=== PATIENT | male | born 1940 | race Caucasian/White ===

== ENCOUNTER 2022-12-12 09:19 | Outpatient (OUT) | payer MEDICARE, SELFPAY ==
[2022-12-12 09:56] LABS: Estimated Average Glucose 140 mg/dL; Glycohemoglobin A1C 6.5 % (4.5-6.2)
[2022-12-12 10:41] LABS: Alanine Aminotransferase 39 U/L (16-63); Albumin Globulin Ratio 0.8; Albumin Level 3.6 g/dL (3.4-5.0); Alkaline Phosphatase 74 U/L (46-116); Anion Gap 9.5; Aspartate Amino Transferase 21 U/L (15-37); Bilirubin Total 0.5 mg/dL (0.2-1.0); Calcium 9.2 mg/dL (8.5-10.1); Carbon Dioxide 27.8 mmol/L (21.0-32.0); Chloride 103 mmol/L (98-107); Chol HDL Ratio 3.6; Cholesterol 133 mg/dL (<=200); Estimated GFR (African America >60 (>=60); Estimated GFR (Non-African Ame >60 (>=60); Globulin 4.4 g/dL; Glucose 124 mg/dL (74-106); HDL Cholesterol 37 mg/dL (40-60); Potassium 4.3 mmol/L (3.5-5.1); Sodium 136 mmol/L (136-145); Triglycerides 82 mg/dL (<=150); VLDL CHOLESTEROL 16.4 mg/dL
== END 2022-12-12 09:20 | disposition home or self-care (01) ==
LOC: LAB 09:19
PROVIDERS: PCP Family Medicine; Visit Provider Family Medicine
DX: E11.22 Type 2 diabetes mellitus with diabetic chronic kidney disease (principal); I12.9 Hypertensive chronic kidney disease with stage 1 through stage 4 chronic kidney disease, or unspecified chronic kidney disease; N18.2 Chronic kidney disease, stage 2 (mild); E78.5 Hyperlipidemia, unspecified
CPT/HCPCS: 36415; 80053; 80061; 83036

== ENCOUNTER 2023-02-21 14:26 | Outpatient (OUT) | payer MEDICARE, SELFPAY ==
--- NOTE | 2023-02-21 14:32 | XR_ITS ---
The [place] [address] Patient Name: MAGALI CAMPBELL MRN: [id number] date: 1940 Sex: M Assigned Patient Location: [facility] Current Patient Location: [facility] Accession/Order Number: [id number] Exam Date: 02/21/2023 14:35 Report Date: 02/21/2023 18:34 At the request of: TRISTA IBARRA Procedure: XR lumbar spine 2-3V EXAMINATION: XR lumbar spine 2-3V HISTORY: M47.816 r COMPARISON: No relevant comparison available. FINDINGS: BONES: 6 mm anterolisthesis of L4 on L5. Moderate degenerative spondylosis and facet osteoarthropathy DISC SPACES: Normal. No significant disc height narrowing, subluxation, or endplate abnormality. PARASPINOUS: Negative. No paraspinous abnormality is seen. OTHER: Extensive vascular calcifications XR/XR lumbar spine 2-3V IMPRESSION: 6 mm anterolisthesis of L4 and L5. Moderate degenerative change Electronically authenticated by: DELORIS CHILDRESS Date: 02/21/2023 18:34
== END 2023-02-21 14:27 | disposition home or self-care (01) ==
LOC: RAD 14:26
PROVIDERS: PCP Family Medicine; Visit Provider Family Medicine
DX: M47.816 Spondylosis without myelopathy or radiculopathy, lumbar region (principal)
CPT/HCPCS: 72100

== ENCOUNTER 2023-02-27 14:26 | Outpatient (OUT) | payer MEDICARE, SELFPAY ==
--- NOTE | 2023-02-27 14:29 | XR_ITS ---
The [address] [address] Patient Name: MAGALI CAMPBELL MRN: [id number] date: 1940 Sex: M Assigned Patient Location: [facility] Current Patient Location: [facility] Accession/Order Number: [id number] Exam Date: 02/27/2023 14:55 Report Date: 02/27/2023 20:01 At the request of: TRISTA IBARRA Procedure: XR lumbar spine 2-3V EXAM: XR lumbar spine 2-3V HISTORY: Radiculopathy M47.816 . Low back pain without recent injury. COMPARISON: 02/21/2023 TECHNIQUE: Multiple lateral views of the lumbar spine were obtained. FINDINGS: There is a minimal grade 1 anterior spondylolisthesis of L4 on L5. The vertebral bodies are otherwise aligned. The vertebral body heights are intact. Osteophytes arise from the vertebral bodies and no significant focal abnormality is identified within. There is mild narrowing of most of the disc spaces throughout the lumbar spine with moderate narrowing at the L5-S1 level. Degenerative changes are seen in the facets, more prominent at the L4-L5. Atheromatous calcifications are seen anterior to the spine. XR/XR lumbar spine 2-3V IMPRESSION: There is a minimal grade 1 anterior spondylolisthesis of L4 on L5. There is no evidence of an acute fracture or additional anterior spondylolisthesis. Degenerative changes are present. The overall appearance is not changed significantly. Electronically authenticated by: JENNA BUTT Date: 02/27/2023 20:01
== END 2023-02-27 14:27 | disposition home or self-care (01) ==
LOC: RAD 14:26
PROVIDERS: PCP Family Medicine; Visit Provider Family Medicine
DX: M47.816 Spondylosis without myelopathy or radiculopathy, lumbar region (principal)
CPT/HCPCS: 72100